=== PATIENT | female | born 1945 | race Caucasian/White ===

== ENCOUNTER → 2018-06-11 | Outpatient (CLI) | payer MEDICARE, BC ==
--- NOTE | 2018-06-11 14:36 | 2DMMODE ---
[place] [address] 2 D/M-MODE ECHOCARDIOGRAM Name: CARON SERNA Room: [facility]#: [id number] Admission: 06/11/18 Attend Phys: Khang Swartz, Discharge: Date of : 45 Date of Service: 06/11/18 1435 Report #: [id number] THIS REPORT FOR: //name// APPROVED REPORT Study performed: 06/11/2018 12:49:16 EXAM: Comprehensive 2D, Doppler, and color-flow Echocardiogram Patient Location: Out-Patient Status: routine BSA: 1.86 HR: 60 bpm BP: 145/90 mmHg Other Information Study Quality: Good Indications Aortic Valve Disease 2D Dimensions IVSd: 11.47 (7-11mm) LVOT Diam: 20.02 (18-24mm) LVDd: 37.47 mm PWd: 9.80 (7-11mm) Ascending Ao: 33.56 (22-36mm) LVDs: 17.41 (25-40mm) Aortic Root: 24.52 mm Volumes Left Atrial Volume (Systole) LA ESV Index: 9.90 mL/m2 Aortic Valve AoV Peak Jonatan.: 3.21 m/s AO Peak Gr.: 41.33 mmHg LVOT Max P.47 mmHg AO Mean Gr.: 24.91 mmHg LVOT Mean P.32 mmHg LVOT Max V: 0.79 m/s AO V2 VTI: 81.09 cm LVOT Mean V: 0.54 m/s LLOYD (VTI): 0.81 cm2 LVOT V1 VTI: 20.92 cm Mitral Valve E/A Ratio: 0.60 MV Decel. Time: 310.79 ms MV E Max Jonatan.: 0.52 m/s MV PHT: 90.13 [place] [address] 2 D/M-MODE ECHOCARDIOGRAM Name: CARON SERNA Room: [facility]#: [id number] Admission: 06/11/18 Attend Phys: Khang Swartz, Discharge: Date of : 45 Date of Service: 06/11/18 1435 Report #: [id number] MVA (PHT): 2.44 cm2 TDI E/Lateral E': 10.40 E/Medial E': 6.50 Medial E' Jonatan.: 0.08 m/s Lateral E' Jonatan.: 0.05 m/s Pulmonary Valve PV Peak Jonatan.: 0.75 m/s PV Peak Gr.: 2.25 mmHg Tricuspid Valve RAP Estimate: 5.00 mmHg TR Peak Gr.: 26.86 mmHg RVSP: 31.86 mmHg PA Pressure: 31.86 mmHg Left Ventricle The left ventricle is normal size. There is inferobasilar hypokinesis. Mild concentric left ventricular hypertrophy. Left ventricular systolic function is normal. The left ventricular ejection fraction is within the normal range. LVEF is 60%. Grade I - abnormal relaxation pattern. Right Ventricle The right ventricle is normal size. The right ventricular systolic function is normal. Atria The left atrium size is normal. The right atrium size is normal. Aortic Valve Aortic valve is moderately calcified. No aortic regurgitation is present. Moderate aortic stenosis. Mitral Valve The mitral valve is normal in structure. There is no mitral valve regurgitation noted. No evidence of mitral valve stenosis. Tricuspid Valve The tricuspid valve is normal in structure. Mild tricuspid regurgitation. Pulmonic Valve The pulmonary valve is normal in structure. There is no pulmonic [place] [address] 2 D/M-MODE ECHOCARDIOGRAM Name: CARON SERNA Room: [facility]#: [id number] Admission: 06/11/18 Attend Phys: Khang Swartz, Discharge: Date of : 45 Date of Service: 06/11/18 1435 Report #: [id number] Great Vessels The aortic root is normal in size. IVC is normal in size and collapses >50% with inspiration. Pericardium There is no pericardial effusion. <Conclusion> The left ventricle is normal size. Mild concentric left ventricular hypertrophy. Left ventricular systolic function is normal. The left ventricular ejection fraction is within the normal range. LVEF is 60%. Grade I - abnormal relaxation pattern. The right ventricle is normal size. The left atrium size is normal. Aortic valve is moderately calcified. No aortic regurgitation is present. Moderate aortic stenosis. The mitral valve is normal in structure. The tricuspid valve is normal in structure. Mild tricuspid regurgitation. IVC is normal in size and collapses >50% with inspiration. There is no pericardial effusion. There is inferobasilar hypokinesis. <ELECTRONICALLY SIGNED> By: Nikko Ramon MD, FACC 06/11/18 1435 1435 1435 Nikko Ramon MD, FACC /INF
== END ==
LOC: M.CRD 12:41
DX: I07.1 Rheumatic tricuspid insufficiency (principal); I35.0 Nonrheumatic aortic (valve) stenosis

== ENCOUNTER → 2019-01-01 | Outpatient (CLI) | payer MEDICARE, BC ==
[2019-01-01] VITALS (15 sets, daily range): BP systolic 130–212; BP diastolic 67–107
[~2019-01-01] MED LIST: CELECOXIB100 MG PO; COREG6.25 MG PO; LIPITOR 20 MG T20 M1 PO; LISINOPRIL40 MG PO; NORVASC5 MG PO; OMEPRAZOLE 20 M20 M1 PO; PAROXETINE HCL20 MG PO; ZOLPIDEM TARTRA10 MG PO
--- NOTE | 2019-01-01 16:35 | TEE ---
[place] [address] TRANSESOPHAGEAL ECHOCARDIOGRAM Name: CARON SERNA Room: [facility]#: [id number] Admission: 01/01/19 Attend Phys: Khang Swartz, Discharge: Date of : 45 Date of Service: 01/01/19 1635 Report #: [id number] THIS REPORT FOR: //name// APPROVED REPORT Study performed: 01/01/2019 12:37:54 EXAM: Transesophageal Echocardiogram Patient Location: Out-Patient BSA: 1.82 HR: 60 bpm BP: 164/98 mmHg Rhythm: NSR Other Information Study Quality: Technically Difficult Technically limited study due to poor contact, limited images available. Indications Aortic Valve Disease Echo Enhancing Agent Indication: Rule out Shunt Agent(s) / Amount(s) Used: Agitated Saline 10 cc 2D Dimensions LVOT Diam: 20.71 (18-24mm) Aortic Valve AoV Peak Jonatan.: 3.57 m/s AO Peak Gr.: 51.03 mmHg LVOT Max P.93 mmHg AO Mean Gr.: 30.25 mmHg LVOT Mean P.43 mmHg LVOT Max V: 0.86 m/s AO V2 VTI: 91.78 cm LVOT Mean V: 0.55 m/s LLOYD (VTI): 0.87 cm2 LVOT V1 VTI: 23.81 cm Procedure After obtaining informed consent, patient underwent transesophageal echo in the [facility]. Type of Sedation : Conscious Sedation Sedation was administered by Ama Mckeon RN. Sedation start time: 124 Case end Time: 131 Sedation was achieved intravenously with: Versed (4) Fentanyl (100) [place] [address] TRANSESOPHAGEAL ECHOCARDIOGRAM Name: CARON SERNA Room: [facility]#: [id number] Admission: 01/01/19 Attend Phys: Khang Swartz, Discharge: Date of : 45 Date of Service: 01/01/19 1635 Report #: [id number] Transesophageal probe was inserted and advanced into esophagus without difficulty by Khang Swartz MD, [facility]. Echo enhancement indication: R/O Septal defect. Echo enhancement agent administered: Agitated Saline The SHANE was performed without complications. Throughout the procedure, the blood pressure, pulse oximetry, cardiac rhythm, and rate were monitored. The patient tolerated the procedure without adverse effects. Recovery from conscious sedation was uneventful and vital signs were stable. Left Ventricle The left ventricle is normal size. Mild concentric left ventricular hypertrophy. The left ventricular systolic function is normal. LVEF is 65-70%. Right Ventricle The right ventricle is normal size. The right ventricular systolic function is normal. Atria No thrombus is visualized in the left atrium or appendage. Interatrial septum is intact without evidence of ASD or PFO. The right atrium size is normal. Aortic Valve Moderate aortic valve sclerosis. No aortic regurgitation is present. Severe aortic stenosis. Mitral Valve The mitral valve is normal in structure. There is no mitral valve regurgitation noted. Tricuspid Valve Tricuspid valve is not well visualized. Pulmonic Valve The pulmonary valve is normal in structure. There is no pulmonic valvular regurgitation. Great Vessels The aortic root is normal in size. Pericardium There is no pericardial effusion. There [place] [address] TRANSESOPHAGEAL ECHOCARDIOGRAM Name: CARON SERNA Room: [facility]#: [id number] Admission: 01/01/19 Attend Phys: Khang Swartz, Discharge: Date of : 45 Date of Service: 01/01/191634 Report #: [id number] <Conclusion> The left ventricle is normal size. Mild concentric left ventricular hypertrophy. The left ventricular systolic function is normal. LVEF is 65-70%. Interatrial septum is intact without evidence of ASD or PFO. Moderate aortic valve sclerosis. Severe aortic stenosis. <ELECTRONICALLY SIGNED> By: Khang Swartz MD, [facility] 01/01/19 1635 34 1635 Khang Swartz MD, FACC /INF
== END | disposition home or self-care (01) ==
LOC: M.CL 11:26
DX: I35.8 Other nonrheumatic aortic valve disorders (principal); I51.7 Cardiomegaly; Z88.8 Allergy status to other drugs, medicaments and biological substances; Z79.899 Other long term (current) drug therapy

== ENCOUNTER → 2019-02-04 | Outpatient (CLI) | payer MEDICARE, BC ==
[2019-02-04 13:41] LABS: ANION GAP 8 mmol/L (7-16); BUN 20 mg/dL (7-18); CALCIUM 9.3 mg/dL (8.5-10.1); CHLORIDE 105 mmol/L (98-107); CHOLESTEROL 234 mg/dL (<200); CO2 29 mmol/L (21-32); CREATININE 1.1 mg/dL (0.6-1.3); GLUCOSE 94 mg/dL (70-99); HDL CHOLESTEROL 57 mg/dL (>40); LDL CHOLESTEROL 159 mg/dL (<100); POTASSIUM 4.8 mmol/L (3.5-5.1); SERUM ASSESSMENT CLEAR; SODIUM 142 mmol/L (136-145); TC:HDL 4.1 Ratio (Not establshd); TRIGLYCERIDE 93 mg/dL (<150); VLDL 19 mg/dL (<40)
== END ==
LOC: M.LAB 12:54
PROVIDERS: Internal Medicine Cardiovascular Disease
DX: E78.2 Mixed hyperlipidemia (principal); I10 Essential (primary) hypertension

== ENCOUNTER → 2021-06-16 | Outpatient (CLI) | payer MEDICARE, BC ==
[2021-06-16 10:25] LABS: CREATININE 1.2 mg/dL (0.6-1.3)
== END ==
LOC: M.CT 06-08 15:34 → M.LAB 09:59 → M.CT 11:00
PROVIDERS: ATTEND Internal Medicine Cardiovascular Disease
DX: Z01.812 Encounter for preprocedural laboratory examination (principal); I25.10 Atherosclerotic heart disease of native coronary artery without angina pectoris; J98.11 Atelectasis; J98.4 Other disorders of lung; K44.9 Diaphragmatic hernia without obstruction or gangrene; I70.0 Atherosclerosis of aorta; I10 Essential (primary) hypertension; I35.0 Nonrheumatic aortic (valve) stenosis; E78.2 Mixed hyperlipidemia; I63.139 Cerebral infarction due to embolism of unspecified carotid artery

== ENCOUNTER → 2021-06-24 | Outpatient (CLI) | payer MEDICARE, BC ==
[~2021-06-24] VITALS: Ht 165.1 cm; Wt 73.5 kg
[2021-06-24] VITALS (7 sets, daily range): BP systolic 113–153; BP diastolic 54–84
[~2021-06-24] MED LIST changes: +ADULT LOW DOSE81 MG PO; +CARVEDILOL12.5 MG PO; +LIPITOR80 MG PO; +NORVASC10 MG PO; +PLAVIX 75 MG TA75 MG PO; +ZETIA10 MG PO
[2021-06-24 13:03] LABS: ABSOLUTE BASOPHILS 0.1 thou/uL (0.0-0.2); ABSOLUTE EOSINOPHILS 0.4 thou/uL (0.0-0.7); ABSOLUTE LYMPHOCYTES 0.9 thou/uL (0.8-5.3); ABSOLUTE MONOCYTES 0.8 thou/uL (0.0-1.2); ABSOLUTE NEUTROPHILS 5.7 thou/uL (1.6-8.1); EOSINOPHILS 4.9 %; HEMATOCRIT 37.5 % (37.0-47.0); HEMOGLOBIN 12.3 gm/dL (12.0-15.0); LYMPHOCYTES 10.9 %; MCH 30.2 pg (26.0-34.0); MCHC 32.8 g/dL (28.0-37.0); MCV 91.9 fL (80.0-100.0); MONOCYTES 9.9 %; MPV 8.8 fl. (7.2-11.1); NUCLEATED RBCS 0 /100WBC; PLATELET COUNT* 308 thou/uL (150-400); POLYS 73.3 %; RBC 4.08 mil/uL (4.20-5.00); RDW-CV 13.4 % (10.5-14.5); WBC 7.8 thou/uL (4.0-11.0)
[2021-06-24 13:15] LABS: ANION GAP 7 mmol/L (7-16); BUN 19 mg/dL (7-18); CALCIUM 9.1 mg/dL (8.5-10.1); CHLORIDE 106 mmol/L (98-107); CO2 30 mmol/L (21-32); CREATININE 1.2 mg/dL (0.6-1.3); GLUCOSE 97 mg/dL (70-99); POTASSIUM 4.2 mmol/L (3.5-5.1); SODIUM 143 mmol/L (136-145)
[2021-06-24 13:19] LABS: ALBUMIN 3.4 g/dL (3.4-5.0); ALKALINE PHOSPHATASE 103 U/L (46-116); CHOLESTEROL 120 mg/dL (<200); HDL CHOLESTEROL 56 mg/dL (>40); LDL CHOLESTEROL 51 mg/dL (<100); SGOT 22 U/L (15-37); SGPT 25 U/L (30-65); TC:HDL 2.1 Ratio (Not establshd); TOTAL BILIRUBIN 0.6 mg/dL (<0.1-1.0); TOTAL PROTEIN 6.9 g/dL (6.4-8.2); TRIGLYCERIDE 66 mg/dL (<150); VLDL 13 mg/dL (<40)
[2021-06-24 13:20] LABS: APTT 25.6 Seconds (25.0-31.3); INR 1.1; PROTIME 10.8 Seconds (9.20-11.50); SERUM ASSESSMENT Clear
--- NOTE | 2021-06-24 14:23 | EKG ---
[place] [address] ELECTROCARDIOGRAM REPORT Name: CARON SERNA Room: [facility]#: [id number] Admission: 06/24/21 Attend Phys: Khang Swartz, Discharge: Date of : 45 Date of Service: 06/24/21 1258 Report #: [id number] THIS REPORT FOR: //name// [facility] Test Date: 2021-06-24 Test Time: 12:58:43 Pat Name: CARON SERNA Department: Room: Gender: F Cardiovascular Technologist: : 1945 Requested By: Khang Swartz Order Number: [id number] Reading MD: Ramez Guillory Measurements Intervals [place] Rate: 63 P: 31 IN: 150 QRS: 7 QRSD: 82 T: 54 QT: 382 QTc: 392 Interpretive Statements Sinus rhythm with short pr interval Left ventricular hypertrophy No previous ECG available for comparison Electronically Signed On 06-24-2021 14:23:23 CDT by Ramez Guillory [email or web address] <ELECTRONICALLY SIGNED> By: Ramez Guillory MD, [facility] 06/24/21 1423 1258 1258 Ramez Guillory MD, FAC /EPI
--- NOTE | 2021-06-24 16:48 | CARD ---
[address] [address] CARDIAC CATH REPORT Name: [facility] SERNA [id number] Admission: 06/24/21 Attend Phys: Khang Swartz MD Discharge: Date of : 45 Report #: [id number] THIS REPORT FOR: cc: ALEAH GUERRERO MD, TIMOTHY N. MD Liston, Michael J. MD [facility] ~ APPROVED REPORT Study performed: 06/24/2021 12:41:47 Patient Details Patient Status: Out-Patient Room #: The patient is a 76 year-old female Event Personnel Rafael Green RN, Hoang Cohn RTR, Qing Chavez RTR Procedures Performed Left heart cath with LV pressures Procedure Narrative The patient was brought electively to the Cardiac Catheterization Laboratory and was prepped and draped in a sterile manner. The right femoral was infiltrated with 2% Lidocaine subcutaneous anesthesia. IV conscious sedation was used throughout procedure with appropriate monitoring and was performed in the presence of a registered nurse who was an independent trained observer other than the physician performing the procedure. A 6 Fr [place] sheath was inserted into the right femoral artery. Coronary angiography was performed using coronary diagnostic catheters. The right coronary system was accessed and visualized with a Diagnostic 6Fr JR4 catheter. The left coronary system was accessed and visualized with a Diagnostic 6Fr JL 4 catheter. Left ventricular/Aortic Valve gradient assessed via catheter pullback. Pre-demployment femoral angiogram was performed in [facility]. Closure device was deployed with a 6 Fr Mynx. The patient tolerated the procedure well and there were no complications associated with the procedure. There was no hematoma. Intraoperative Conscious Sedation Sedation start time: 1336 Case end Time: 1347 Fentanyl 25.0 mcg Versed 1.[address] [place] [address] CARDIAC CATH REPORT Name: CARON SERNA Room: [facility]#: [id number] Admission: 06/24/21 Attend Phys: Khang Swartz MD Discharge: Date of : 45 Report #: [id number] Fluoro Time: 4.4 minutes Dose: DAP 96048 cGycm2 575 mGy Contrast Type and Amount: Omnipaque 45 ML Diagnostic Cath Left Main The left main coronary artery is normal and bifurcates into a left anterior descending and circumflex coronary artery. LAD The left anterior descending coronary artery is normal in its proximal mid and distal portion. Diagonal 1 A small first diagonal branch is normal. Diagonal 2 A large in caliber branched second diagonal branch is normal. Circumflex The circumflex coronary artery is normal in its proximal mid and distal portion. OM1 A small first obtuse marginal branch is normal. OM2 The circumflex terminates in a large second obtuse marginal branch that is normal. Right Coronary The right coronary artery is normal in its proximal mid and distal portion. R PDA A moderate-sized PDA is normal. RPLV A moderate sized right posterior lateral LV branch is normal. Left Ventriculography Left Ventriculography was not performed. Hemodynamics The aortic pressure is 136/46 mmHg with a mean of 84 mmHg. The left ventricular pressure is 222/11 mmHg with a mean of 35 mmHg. The left ventricular end diastolic pressure is 15 mmHg. Conclusion 1. Normal coronary arteries. 2. Minimally elevated left ventricular end-diastolic pressure. 3. Significant gradient across the aortic valve consistent with severe aortic stenosis. Recommendations 1. Continue aggressive risk factor modification. 2. Continue referral for transcutaneous aortic valve replacement. <ELECTRONICALLY SIGNED> By: Khang Swartz MD, FACC 06/24/211647 47 47[facility] Sw[facility]z MD, FACC /INF
== END | disposition home or self-care (01) ==
LOC: M.CL 11:29
PROVIDERS: ATTEND Internal Medicine Cardiovascular Disease
DX: R06.02 Shortness of breath (principal); I11.0 Hypertensive heart disease with heart failure; I50.30 Unspecified diastolic (congestive) heart failure; I35.0 Nonrheumatic aortic (valve) stenosis; E78.2 Mixed hyperlipidemia; Z98.890 Other specified postprocedural states; Z79.899 Other long term (current) drug therapy; Z20.822 Contact with and (suspected) exposure to COVID-19; Z86.73 Personal history of transient ischemic attack (TIA), and cerebral infarction without residual deficits; Z98.51 Tubal ligation status; Z88.8 Allergy status to other drugs, medicaments and biological substances